=== PATIENT | male | born 1990 | race Caucasian/White ===

== ENCOUNTER 2019-10-30 08:58 | Emergency (ER) | payer SELFPAY ==
[~2019-10-30] VITALS: Ht 182.9 cm; Wt 70.0 kg
[2019-10-30 09:06] VITALS: BP 141/89
[2019-10-30] MEDS ORDERED: MOME17SP BOTHNARES (09:23)
== END 2019-10-30 09:40 | disposition home or self-care (01) ==
LOC: ER 08:58
DX: H92.01 Otalgia, right ear (principal); F17.200 Nicotine dependence, unspecified, uncomplicated; F12.90 Cannabis use, unspecified, uncomplicated; Z79.899 Other long term (current) drug therapy
CPT/HCPCS: 99283

== ENCOUNTER 2019-10-30 21:04 | Emergency (ER) | payer SELFPAY ==
[~2019-10-30] VITALS: Ht 182.9 cm; Wt 73.5 kg
[~2019-10-30 21:04] MED LIST: MOME17SP BOTHNARES
[2019-10-30 21:11] VITALS: BP 134/87
== END 2019-10-31 00:07 | disposition left against medical advice (07) ==
LOC: ER 21:04
DX: H93.11 Tinnitus, right ear (principal); F17.200 Nicotine dependence, unspecified, uncomplicated; F12.90 Cannabis use, unspecified, uncomplicated; Z72.89 Other problems related to lifestyle; Z79.899 Other long term (current) drug therapy
CPT/HCPCS: 99281

== ENCOUNTER 2022-01-18 12:58 | Emergency (ER) | payer MEDICAID ==
[~2022-01-18] VITALS: Ht 182.9 cm; Wt 70.5 kg
[2022-01-18] MEDS ORDERED: orphenadrine citrate 60mg/2ml inj. IM ONE (14:10)
[2022-01-18] MEDS ORDERED: ketorolac trometh inj. 60 MG/2 ML VIAL IM ONE (14:10)
--- NOTE | 2022-01-18 14:14 | NUR ---
PT TO CT
--- NOTE | 2022-01-18 14:24 | NUR ---
PT RETURN FROM CT
[2022-01-18] MEDS ORDERED: HYDROcodone/acetaminophen 10/325mg tab PO ONE (15:05)
[2022-01-18] MEDS ORDERED: HYDR-3965 PO (15:58)
[2022-01-18] MEDS ORDERED: IBUP-1986 PO (15:58)
[2022-01-18] MEDS ORDERED: CYCL-1 PO (15:58)
[2022-01-18 16:14] VITALS: BP 122/78
== END 2022-01-18 16:43 | disposition home or self-care (01) ==
LOC: ER 12:58
DX: S16.1XXA Strain of muscle, fascia and tendon at neck level, initial encounter (principal); F12.90 Cannabis use, unspecified, uncomplicated; W08.XXXA Fall from other furniture, initial encounter; Y93.89 Activity, other specified; Y92.89 Other specified places as the place of occurrence of the external cause; Y99.8 Other external cause status
CPT/HCPCS: 70450; 72125; 96372; 99284; J1885; J2360

== ENCOUNTER 2022-01-26 02:36 | Emergency (ER) | payer MEDICAID ==
[~2022-01-26 02:36] MED LIST changes: +CYCL-1 PO; +HYDR-3965 PO; +IBUP-1986 PO; -MOME17SP BOTHNARES
== END 2022-01-26 03:37 | disposition left against medical advice (07) ==
LOC: ER 02:36
DX: S01.91XA Laceration without foreign body of unspecified part of head, initial encounter (principal); Z53.21 Procedure and treatment not carried out due to patient leaving prior to being seen by health care provider; X58.XXXA Exposure to other specified factors, initial encounter; Y93.9 Activity, unspecified; Y92.9 Unspecified place or not applicable; Y99.9 Unspecified external cause status